=== PATIENT | female | born 1960 | race Caucasian/White ===

== ENCOUNTER → 2018-05-30 14:40 | Outpatient (CLI) | payer BC, SELFPAY ==
--- NOTE | 2018-05-30 14:51 | XR_ITS ---
XR DEXA axial skeleton HISTORY: ITS.REASON: asymptomatic menopausal state ORDERING PHYSICIAN: Salinas Rivera MD PATIENT AGE: 58 years COMPARISON: None FINDINGS: The BMD measured at the left femoral neck is 0.946 g/cm squared with a T score of -0.7. This is considered Normal according to the World Health Organization criteria. Fracture risk is Low. Treatment is advised. IMPRESSION: Normal bone density with low fracture risk. Recommend follow-up exam in May 2020
--- NOTE | 2018-05-30 14:51 | MM_ITS ---
MM Dig screening mamm BI w/CAD CAD Screening COMPARISON: Digital mammograms 05/28/2017 and additional views left breast 06/23/2017 INDICATION: There is a history of breast cancer patient maternal aunt. TECHNIQUE: Standard CC and MLO images were obtained. R2 CAD reviewed. FINDINGS: Prominent diffuse fibro glandular densities are seen throughout both breasts. Again noted is the asymmetric density upper outer quadrant left breast. This was noted to be a probable complex cyst on ultrasound performed May 2017. It appears stable and unchanged in size from the previous exam. Ultrasound performed 05/30/2018 show small hypoechoic nodular lesion to suggest small to characterize but likely small complex cyst. There is no suspicious lesion and there are no suspicious microcalcifications. IMPRESSION: Moderate diffuse breast density with stable benign-appearing asymmetric density left breast BI-RADS Category: 2 Benign Finding(s) RECOMMENDED FOLLOW-UP: 1YR - 1 YEAR FOLLOW-UP (A letter has been sent to the patient regarding results of the study.)
--- NOTE | 2018-05-30 14:51 | US_ITS ---
US breast LT complete INDICATION: Follow-up abnormal ultrasound ORDERING PHYSICIAN: Salinas Rivera MD PATIENT AGE: 58 years COMPARISON: 06/23/2017 TECHNIQUE: Standard left breast ultrasound with axilla FINDINGS: There is a small cyst at 3:00 at approximately 2 mm. There is a 3 mm hypoechoic area at 11:00 likely corresponding to the previously noted abnormality unchanged. This could be due to a complex cyst or an area of fibrocystic change. No suspicious nodules evident. IMPRESSION: Benign findings, no sonographic evidence of malignancy Recommend mammographic follow-up to compared to the 06/23/2017 exam BI-RADS Category: 2 Benign Finding(s) RECOMMENDED FOLLOW-UP: 1YR - 1 YEAR FOLLOW-UP (A letter has been sent to the patient regarding results of the study.)
== END ==
PROVIDERS: PCP Internal Medicine Adolescent Medicine; Visit Provider Obstetrics & Gynecology
DX: Z12.31 Encounter for screening mammogram for malignant neoplasm of breast (principal); R92.8 Other abnormal and inconclusive findings on diagnostic imaging of breast; Z78.0 Asymptomatic menopausal state
CPT/HCPCS: 76641; 77067; 77080

== ENCOUNTER → 2018-12-02 14:42 | Outpatient (CLI) | payer BC, SELFPAY ==
--- NOTE | 2018-12-02 14:44 | US_ITS ---
US breast LT complete INDICATION: 6 month follow-up ORDERING PHYSICIAN: Salinas Rivera MD PATIENT AGE: 58 years COMPARISON: 05/30/2018 TECHNIQUE: Left breast ultrasound with axilla FINDINGS: Once again there is a subtle area of decreased echogenicity at the 11:00 region measuring only 2 mm and could be due to a small complex cyst or an area of fibroglandular tissue. This is unchanged. Small nodes are present in the axilla. IMPRESSION: No evidence of malignancy. No change in the small hypoechoic 2 mm nodule at 11:00 Suggest follow-up mammogram in June 07, 2019 which would BE an annual follow-up for this patient BI-RADS Category: 2 Benign Finding(s) RECOMMENDED FOLLOW-UP: 6M - 6 MONTH FOLLOW-UP (A letter has been sent to the patient regarding results of the study.)
== END ==
PROVIDERS: PCP Internal Medicine Adolescent Medicine; Visit Provider Obstetrics & Gynecology
DX: R92.8 Other abnormal and inconclusive findings on diagnostic imaging of breast (principal)
CPT/HCPCS: 76641

== ENCOUNTER → 2019-06-02 09:53 | Outpatient (CLI) | payer BC, SELFPAY ==
--- NOTE | 2019-06-02 09:54 | MM_ITS ---
PROCEDURE: MM DIG SCREENING MAMM BI W/CAD CLINICAL INDICATION: screening There is a history of breast cancer patient's maternal aunt and cousin. COMPARISON: DMSB DIG MAMM-SCREEN SANTO W/CAD from 05/28/2017 DMDXUAVL DIG MAMM-DX UNI A/VWS-LT W/CAD from 06/23/2017 [facility] MM Dig screening mamm BI w/CAD from 05/30/2018 TECHNIQUE: Standard CC and MLO images were obtained. R2 CAD reviewed. FINDINGS: Scattered fibroglandular densities are seen throughout both breasts. There is a stable faint asymmetric density left breast highlighted by CAD but unchanged in appearance from studies dating back through May 2017. There is no new or suspicious lesion in either breast and no suspicious microcalcifications. IMPRESSION: Stable to moderate breast density with no suspicious lesions seen BI-RAD Category: 2 Benign Finding(s) FOLLOW-UP: 1YR 1 Year Follow-up (A letter has been sent to the patient regarding results of the study.) Dictated by: Dr. Edi Srinivasan MD 06/05/2019 10:[address] Edi Srinivasan MD in [place] 06/05/2019 10:03
== END ==
PROVIDERS: PCP Internal Medicine Adolescent Medicine; Visit Provider Obstetrics & Gynecology
DX: Z12.31 Encounter for screening mammogram for malignant neoplasm of breast (principal)
CPT/HCPCS: 77067

== ENCOUNTER → 2020-06-12 09:11 | Outpatient (CLI) | payer BC, SELFPAY ==
--- NOTE | 2020-06-12 09:11 | MM_ITS ---
PROCEDURE: MM DIG SCREENING MAMM BI W/CAD Digital Breast Tomosynthesis Included CLINICAL INDICATION: Routine Screening Mammogram There is a history of breast cancer patient's maternal aunt and cousin. The patient currently is on Premarin. COMPARISON: MG DMDXUAVL DIG MAMM-DX UNI A/VWS-LT W/CAD from 06/23/2017 MG [facility] MM Dig screening mamm BI w/CAD from 05/30/2018 MG MM DIG SCREENING MAMM BI W/CAD from 06/02/2019 TECHNIQUE: Standard CC and MLO images and 3D Tomosynthesis was obtained. R2 CAD reviewed. FINDINGS: Moderate scattered fibroglandular densities are seen throughout both breasts. Again noted slightly increased asymmetric glandular elements upper-outer right breast there is no new or suspicious lesion in either breast and no suspicious microcalcifications. IMPRESSION: Fibrofatty parenchyma with no suspicious lesions seen BI-RAD Category: 1 Negative FOLLOW-UP: 1YR 1 Year Follow-up (A letter has been sent to the patient regarding results of the study.) Dictated by: Dr. Edi Srinivasan MD 06/18/2020 08:23 Dr. Edi Srinivasan MD in [place] 06/18/2020 08:23
== END ==
PROVIDERS: PCP Internal Medicine Adolescent Medicine; Visit Provider Obstetrics & Gynecology
DX: Z12.31 Encounter for screening mammogram for malignant neoplasm of breast (principal)
CPT/HCPCS: 77063; 77067

== ENCOUNTER → 2021-06-13 10:44 | Outpatient (CLI) | payer BC, SELFPAY ==
--- NOTE | 2021-06-13 10:44 | MM_ITS ---
PROCEDURE INFORMATION: Exam: MG Bilateral Screening 3D Mammography Exam date and time: 06/13/2021 10:44 AM Age: 61 years old Clinical indication: Encounter for screening mammogram for malignant neoplasm of breast TECHNIQUE: Imaging protocol: Bilateral screening tomosynthesis and 2D mammography including computer-aided detection (CAD) when performed. COMPARISON: 1. MG MM DIG SCREENING MAMM BI W/CAD 06/12/2020 9:31 AM 2. MG MM DIG SCREENING MAMM BI W/CAD 06/02/2019 10:13 AM FINDINGS: MAMMOGRAPHY: Breast composition: The breast tissue is composed of scattered areas of fibroglandular density. Mass: None. Architectural distortion: None. Calcifications: No suspicious calcifications. Asymmetric density: None. Skin thickening: None. Axillary adenopathy: None. IMPRESSION: No mammographic evidence of malignancy. Annual screening is recommended unless otherwise clinically indicated. ASSESSMENT: BI-RADS Category 1: Negative
== END ==
PROVIDERS: PCP Internal Medicine Adolescent Medicine; Visit Provider Obstetrics & Gynecology
DX: Z12.31 Encounter for screening mammogram for malignant neoplasm of breast (principal)
CPT/HCPCS: 77063; 77067

== ENCOUNTER → 2022-06-15 12:39 | Outpatient (CLI) | payer OTHER, SELFPAY ==
--- NOTE | 2022-06-15 12:39 | MM_ITS ---
PROCEDURE INFORMATION: Exam: MG Bilateral Screening 3D Mammography Exam date and time: 06/15/2022 1:02 PM Age: 62 years old Clinical indication: Screening. A maternal aunt a a breast cancer. TECHNIQUE: Imaging protocol: Bilateral Screening tomosynthesis and 2D mammography including computer-aided detection (CAD) when performed. COMPARISON: 1. MG MM DIG SCREENING MAMM BI W/CAD 06/13/2021 10:40 AM 2. MG MM DIG SCREENING MAMM BI W/CAD 06/12/2020 9:31 AM 3. MG MM DIG SCREENING MAMM BI W/CAD 06/02/2019 10:13 AM 4. MG [facility] MM Dig screening mamm BI w/CAD 05/30/2018 4:12 PM FINDINGS: MAMMOGRAPHY: Breast composition: There are scattered areas of fibroglandular density. Mass: None. Architectural distortion: None. Calcifications: No suspicious calcifications. Asymmetric density: None. Skin thickening: None. Axillary adenopathy: None. IMPRESSION: No mammographic evidence of malignancy. Annual screening is recommended unless otherwise clinically indicated. ASSESSMENT: BI-RADS Category 1: Negative
== END ==
PROVIDERS: PCP Internal Medicine Adolescent Medicine; Visit Provider Obstetrics & Gynecology
DX: Z12.31 Encounter for screening mammogram for malignant neoplasm of breast (principal)
CPT/HCPCS: 77063; 77067

== ENCOUNTER → 2023-06-21 10:18 | Outpatient (CLI) | payer MEDICARE, SELFPAY ==
--- NOTE | 2023-06-21 10:22 | MM_ITS ---
PROCEDURE INFORMATION: Exam: MG Bilateral Screening 3D Mammography Exam date and time: 06/21/2023 10:11 AM Age: 63 years old Clinical indication: Screening examination TECHNIQUE: Imaging protocol: Bilateral Screening tomosynthesis and 2D mammography including computer-aided detection (CAD) when performed. COMPARISON: 1. MG MM DIG SCREENING MAMM BI W/CAD 06/15/2022 1:02 PM 2. MG MM DIG SCREENING MAMM BI W/CAD 06/13/2021 10:40 AM FINDINGS: MAMMOGRAPHY: Breast composition: There are scattered areas of fibroglandular density. Mass: None. Architectural distortion: None. Calcifications: No suspicious calcifications. Asymmetric density: None. Skin thickening: None. Axillary adenopathy: None. IMPRESSION: No mammographic evidence of malignancy. Annual screening is recommended unless otherwise clinically indicated. ASSESSMENT: BI-RADS Category 1: Negative
== END ==
LOC: RAD 10:18
PROVIDERS: PCP Internal Medicine Adolescent Medicine; Visit Provider Internal Medicine Adolescent Medicine
DX: Z12.31 Encounter for screening mammogram for malignant neoplasm of breast (principal)
CPT/HCPCS: 77063; 77067

== ENCOUNTER 2024-07-04 08:27 | Outpatient (CLI) | payer MEDICARE, SELFPAY ==
--- NOTE | 2024-07-04 08:30 | MM_ITS ---
PROCEDURE INFORMATION: Exam: MG Bilateral Screening 3D Mammography Exam date and time: 07/04/2024 8:20 AM Age: 64 years old Clinical indication: Screening examination TECHNIQUE: Imaging protocol: Bilateral Screening tomosynthesis and 2D mammography including computer-aided detection (CAD) when performed. COMPARISON: 1. MG MM DIG SCREENING MAMM BI W/CAD 06/21/2023 10:11 AM 2. MG MM DIG SCREENING MAMM BI W/CAD 06/15/2022 1:02 PM FINDINGS: MAMMOGRAPHY: Breast composition: There are scattered areas of fibroglandular density. Mass: No suspicious masses. Architectural distortion: None. Calcifications: No suspicious calcifications. Asymmetric density: None. Skin thickening: None. Axillary adenopathy: None. IMPRESSION: No mammographic evidence of malignancy. Annual screening is recommended unless otherwise clinically indicated. ASSESSMENT: BI-RADS Category 1: Negative.
== END 2024-07-04 23:59 | disposition home or self-care (01) ==
LOC: RAD 08:28
PROVIDERS: PCP Nurse Practitioner Family; Visit Provider Nurse Practitioner Family
DX: Z12.31 Encounter for screening mammogram for malignant neoplasm of breast (principal)
CPT/HCPCS: 77063; 77067

== ENCOUNTER 2024-11-06 10:15 | Outpatient (CLI) | payer MEDICARE, SELFPAY ==
--- NOTE | 2024-11-06 10:17 | US_ITS ---
FINAL REPORT TECHNIQUE: Sonographic images of the right upper quadrant were obtained. CLINICAL HISTORY: PAIN // chest and back pain x 10 months COMPARISON: None FINDINGS: PANCREAS: Unremarkable. LIVER: Homogeneous. Portal vein is patent. No focal hepatic lesion. No intrahepatic biliary ductal dilatation. GALLBLADDER: The gallbladder is distended. There is a gallstone in the neck of the gallbladder. The gallbladder wall is mildly thickened. There is no pericholecystic fluid. COMMON DUCT: 4 mm. Normal for age. RIGHT KIDNEY: The right kidney measures 11.7 cm. There is no hydronephrosis, mass, or stone. FREE FLUID: None. IMPRESSION: Gallstones and a distended gallbladder. Reviewed, Interpreted and Dictated by Kim Lundberg MD Transcribed by Shonna Sierra Authenticated and [facility]
== END 2024-11-06 23:59 | disposition home or self-care (01) ==
LOC: RAD 10:15
PROVIDERS: PCP Nurse Practitioner Family; Visit Provider Nurse Practitioner Family
DX: R10.11 Right upper quadrant pain (principal); R10.811 Right upper quadrant abdominal tenderness
CPT/HCPCS: 76705

== ENCOUNTER 2024-11-14 10:52 | Outpatient (CLI) | payer MEDICARE, SELFPAY ==
[2024-11-14 11:26] LABS: Basophils # 0.1 K/mm3 (0-0.2); Basophils % 0.3 % (0.1-2.0); Eosinophils % 0.2 % (0.1-12.0); Hematocrit 43.2 % (37.0-47.0); Hemoglobin 14.7 g/dL (12.2-16.2); Lymphocytes % 4.4 % (10-50); Mean Corpuscular Volume 88.2 fl (81-99); Mean Platelet Volume 10.7 fl (7.4-10.4); Monocytes # 1.3 K/mm3 (0.1-1.0); Monocytes % 6.1 % (1.7-9.3); Neutrophils # 19.2 K/mm3 (1.8-7.8); Neutrophils % 88.3 % (37.0-80.0); Nucleated Red Blood Cells # 0 10^3/uL; Nucleated Red Blood Cells % 0 %; Platelet Count 356 K/mm3 (142-424); Red Cell Distribution Width 12.8 % (11.5-17.5); Red Cell Distribution Width-SD 41.2 fL; White Blood Count 21.8 K/mm3 (4.8-10.8)
[2024-11-14 11:46] LABS: Chloride 98 mmol/L (98-107); Sodium 135 mmol/L (136-145)
[2024-11-14 11:49] LABS: Alanine Aminotransferase 28 U/L (12-78); Albumin/Globulin Ratio 2.2 (1.1-1.8); Alkaline Phosphatase 135 U/L (38-126); Amylase 57 U/L (30-110); Aspartate Amino Transferase 34 U/L (14-36); Bilirubin,Total 0.9 mg/dl (0.2-1.3); Blood Urea Nitrogen 18 mg/dl (7-17); Carbon Dioxide 26 mmol/L (22.0-30.0); Estimated Glomerular Filt Rate 72 ml/min (>60); GFR (African American) 87 ML/MIN (>60); Globulin 2.3 g/dL (1.3-3.2); Total Protein,Serum 7.3 g/dl (6.3-8.2)
[2024-11-14 11:50] LABS: Calcium 10.3 mg/dl (8.4-10.2); Glucose 130 mg/dl (74-100); Lipase 92 U/L (23-300)
== END 2024-11-14 23:59 | disposition home or self-care (01) ==
LOC: LAB 10:53
PROVIDERS: PCP Internal Medicine Adolescent Medicine; Visit Provider Surgery
DX: R10.11 Right upper quadrant pain (principal)
CPT/HCPCS: 36415; 80053; 82150; 83690; 85025

== ENCOUNTER 2024-11-29 07:39 | Outpatient (CLI) | payer MEDICARE, SELFPAY ==
--- OUTSIDE RECORDS SUMMARY | 2024-11-29 07:41 | XMS_ITS | Continuity of Care Document ---
Author Organization [facility] [place] Address [address] [place] [address] Care Team Providers Care Alarm Mechanism Adjuster Name Role Phone KEIKO GOMES Referring Provider JESSICA HANLEY Electronics Technician Apprentice Assessment No assessment recorded. Plan of Treatment Reminders Order Date Submit Date Provider Last Modified By Organization Details Last Modified Time Details Appointments FOLLOW UP [facility] 2024 01:00P M JESSICA HANLEY PA-C Not available Not available Not available Lab None recorded. Referral None recorded. Procedures None recorded. Surgeries None recorded. Imaging None recorded. Medication Orders ketoconaz ole 2 % topical cream 2024 025 [facility] [address] [place], [address], 11/07/2024 12:23:34 Patient TargetsNo targets recorded. Patient InstructionsNo instructions recorded. Reason for Referral None Reported. 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 Procedures Surgical History Date Name Laterality Status Provider Name and Address Organization Details Recorded Time 5 DAK - Lesion Excision, [place]; trunk,arms,legs completed Kely Serrano [facility] 09/06/2024 13:21:41 5 DAK - Lesion Excision, [place]; trunk,arms,legs completed Kely Negrob [facility] 08/23/2024 13:25:59 DAK - Biopsy, Tangential completed Gwen Alverto [facility] 05/15/2024 11:04:52 section completed Gavin Dumont [facility] 05/15/2024 10:37:34 Imaging Results None recorded. Procedure Notes None recorded. Medical Equipment None Reported. Allergies No known drug allergies Medications Name Sig Start Date Stop Date Status Note LastModified by Organization Details LastModified Time gentamicin 0.1 % topical cream APPLY A SMALL AMOUNT OF CREAM TOPICALLY TO AFFECTED AREA TWICE DAILY FOR 2 WEEKS, THEN SWITCH TO VASELINE UNTIL HEALED active Not Available Not Available No t Available ketoconazole 2 % topical cream APPLY CREAM TOPICALLY TO INFRAMAMMAR Y FOLDS TWICE DAILY UNTIL CLEAR. REPEAT NEEDED active Not Available Not Available No t Available Premarin 0.625 mg/gram vaginal cream active Not Available Not Available Not Available Prilosec active Not Available Not Avai lable Not Available multivitamin active Not Available Not Available Not Available Vitals None Recorded Social History Question Answer Notes LastModified by Organizat ion Details LastModified Time Tobacco Smoking Status Never Smoker Gavinpasha [facility] 05/15/2024 10:37:05 What Is Your Level Of Caffeine Consumption? Occasional [email or web address] Information not available 05/15/2024 Sunscreen Use? Yes [email or web address] Informatio n not available 05/15/2024 Tanning Bed Use Yes [email or web address] Informati on not available 05/15/2024 Are You Or Trying To Become ? No [email or web address] Information not available 05/15/2024 Are You On Control? No [email or web address] Information not available 05/15/2024 Are You ? No [email or web address] Information not available 05/15/2024 What Was The Date Of Your Most Recent Tobacco Screening? 09/06/2024 [email or web address] Information not available 09/06/2024 Has Tobacco Cessation Counseling Been Provided? No Information not available 05/15/2024 Sex: Unknown Functional Status Question Answer Note LastModified by Organizat ion Details LastModified Time Do you use any illicit or recreational drugs? No [email or web address] Information not available 05/15/2024 Do you or have you ever used any other forms of tobacco or nicotine? No Information not available 05/15/2024 What is your level of alcohol consumption? Occasional [email or web address] Information not available 05/15/2024 Mental Status None recorded. Family History Relationship Description Onset Age of this Age Resolved Age Notes LastModified by Organization Details LastModified Time Father No current problems or disability [email or web address] Not available 04/19 10:36:34 Mother No current problems or disability [email or web address] Not available 04/19 10:36:34 Medical History Condition Response Skin Cancer Y Autoimmune disease N Basal Cell Carcinoma Y Gynecological HistoryNo gynecological history recorded. Obstetrics History GPAL:G 0 P 0 0 0 0 Past Encounters Encounter ID Performer Location Encounter Start Date Encounter Closed Date Diagnosis/Indication Diagnosis SNOMED-CT Code Diagnosis ICD10 Code Diagnosis Note [id number] JESSICA HANLEY PA-C [address] [address] 11/07/2024 10:14:21 11/07/2024 10:45:03 History of malignant neoplasm of skin 359610431 Z85.828 -04/2024- No evidence of recurrence today- Call with any worrisome lesions or if treated lesions return- Return at regular intervals for skin exam as recommende d Multiple b enign melanocytic nevi 633841558 D22.5 - Benign moles seen on exam today - SPF 30 or higher broad-spec trum sunscreen recommende d with re-applica tion every 2 hours - Discussed sun protection measures, including wide-brimm ed hat, sun-protec tive clothing, and avoidance of sun during peak hours of 10am-4pm - Avoid tanning beds as these can increase the chances of all 3 types of skin cancer - Instructed to monitor for changes and to call us for appointmen t with any changing or worrisome lesions Seborrheic keratosis 394 353432 L82.1 - Benign overgrowth s of skin - Hereditary Senile angioma 7466958 I 78.1 - Benign blood vessel growths - Hereditary Solar lentigo [id number] L 81.4 - Benign brown spots - Sun-induce d Intertrigo 64867772 L30. 4 Heat, moisture, friction and, often, yeast cause intertrigo . Barrier ointments such as petrolatum and Desitin (zinc oxide) paste are helpful to prevent symptoms. Will send Ketoconazo le apply BID to inframamma ry folds until clear, repeat PRN Health Concerns Section Related Observation LastModified by Organization Detai ls LastModified Time None Recorded Concern Status LastModified by Organization Details LastModified Time None Recorded Payers Encounter Date Sequence Insurance Name Policy Number Policy Drummond Covered Member ID Drummond Member ID Guarantor Name 11/07/2024 1 [employer] (MEDICARE REPLACEMENT/A DVANTAGE - PPO) Alejandra Batres [id number] Alejandra Batres Notes Date Note Type Note Provider Name and Address Organization Details Recorded Time 11/07/2024 text/html Patient requests a full body skin exam. Location: Full bodyDuration: 6 monthsHistory: BCC (R lower back @T11, R lateral chest, R helix, L forehead - 04/2024)Areas of concern: no concerns JOE BRADLEYC [address] [place], [address], [facility] 11/07/2024 12:23:30 OBGyn Episode No OBEpisode recorded.
--- OUTSIDE RECORDS SUMMARY | 2024-11-29 07:41 | XMS_ITS | Data Portability ---
Author Organization [facility] Address [address] [place] [address] Care Team Providers Care Pre Billing Specialist Name Role Phone MIREYA KEIKO Referring Provider [phone] JESSICA HANLEY Modeling Analyst Assessment Encounter Date Assessment Date Assessment LastModified by Organization Details LastModified Time 08/23/2024 08/23/2024 Right Lower Back @ T11 - BCC, nodular [email or web address] Not available 08/22/2024 08:47:27 Plan of Treatment Reminders Order Date Submit Date Provider Last Modified By Organization Details Last Modified Time Details Appointments FOLLOW UP DAK 2024 01:00P M JESSICA HANLEY PA-C Not available Not available Not available Lab surgical pathology study 2024 025 [facility], [address] [place] [address], [phone], 09/11/2024 11:07:53 surgical pathology study 2024 025 [facility], [address] [place] [address], [phone], 08/24/2024 14:51:00 Referral None recorded. Procedures None recorded. Surgeries None recorded. Imaging None recorded. Medication Orders ketoconaz ole 2 % topical cream 2024 025 [facility] [address] [place], [address], 11/07/2024 12:23:34 Patient TargetsNo targets recorded. Patient Instructions Encounter Date Encounter Id Patient Instructions Last Modified By Organization Details Last Modified Time 08/23/2024 [id number] Patient reassure d about appearance of wound. Patient instructed to begin tissue massage and may begin using silicone scar strips. Patient invited to call for any future questions/concern sRossy [email or web address] Not available 08/23/2024 20:33:11 Reason for Referral None Reported. Results Created Date Observation Date Name Description Value Unit Range Abnormal Flag Note LastModifiedBy Organization Detail LastModifiedTime 08/23/19 25 08/23/2024 [facility] surgical SEE BELOW abnormal [place] topat holog y Repor t NAME: ALEJANDRA RUST PATH: [id number] PROCE DURE DATE: 08/23 SIGNO UT DATE: 08/24 Copy to: Diagn osis: Right lower back @ T11- REPAR ATIVE REACT ION FOLLO WING PREVI OUS PROCE DURE Comme nt: Subcu taneo us fat is ident ified . SOURC E OF SPECI MEN: SKIN, R LOWER BACK AT T11 CLINI [facility] INFOR MATIO N: BX PROVE N: BCC, NODUL AR. Gross Descr iptio n: Recei tomeka times one mcdonald ellip tical -shap ed excis ion which measu red 24 x 14 x 8 mm. Speci men is inked with blue dye for micheline ns and seria lly secti oned (x7). All is submi tted in three casse ttes. Micro scopi c Descr iptio n: Focal granu latio n tissu e jenkins the site of the previ ous proce dure. These is no evide nce of resid ual neopl asm. MELIA WELCH MD Kathy d Out Date: 08/24 13:38 1 Not Available [facility] [address], [place], [address], 08/24/2024 14:51:00 09/06/19 25 09/06/2024 [facility] surgical SEE BELOW abnormal [place] topat holog y Repor t NAME: ALEJANDRA RUST PATH: [id number] PROCE DURE DATE: 09/06 SIGNO UT DATE: 09/11 Copy to: Diagn osis: Right Later al Chest - BASAL CELL CARCI NOMA Comme nt: The micheline ns are free of tumor . Subcu taneo us fat is ident ified . SOURC E OF SPECI MEN: SKIN, R LAT CHEST CLINI [facility] INFOR MATIO N: BX PROVE N: BCC. Gross Descr iptio n: Recei tomeka times one mcdonald ellip tical -shap ed excis ion which measu red 43 x 23 x 7 mm. Speci men is inked with blue dye for micheline ns and seria lly secti oned (x13) . All is submi tted in six casse ttes. Micro scopi c Descr iptio n: Nests and aggre faulkner of immat ure basal oid epith elial cells with perip heral palis ading are prese nt in the dermi s. MELIA WELCH MD Kathy d Out Date: 09/11 11:07 1 Not Available [facility] [place], [address], 09/11/2024 11:07:53 Result Notes None recorded. Problems Name Problem SNOMED Code Status Onset Date Resolution Date Notes Provider Name and Address Organization Details Recorded Time Neoplasm of uncertain behavior of skin 68243518 Active 024 Gwen Del Toro [facility] 4 10:58:04 Intertrigo 09422396 Active 025 Gwen Del Toro [facility] 5 10:39:31 Problem Notes None recorded. Procedures Surgical History Date Name Laterality Status Provider Name and Address Organization Details Recorded Time 5 DAK - Lesion Excision, [place]; trunk,arms,legs completed [facility] 09/06/2024 13:21:41 5 DAK - Lesion Excision, [place]; trunk,arms,legs completed [facility] 08/23/2024 13:25:59 4 DAK - Biopsy, Tangential completed Gwen Del Toro [facility] 05/15/2024 11:04:52 section completed Gavin Dumont [facility] 05/15/2024 10:37:34 Imaging Results None recorded. Procedure [...] LastModified Time Tobacco Smoking Status Never Smoker Gavin Dumont [facility] 05/15/2024 10:37:05 What Is Your Level Of Caffeine Consumption? Occasional [email or web address] Information not available 05/15/2024 Sunscreen Use? Yes [email or web address] Informatio n not available 05/15/2024 Tanning Bed Use Yes [email or web address] Informati on not available 05/15/2024 Are You Or Trying To Become ? No [email or web address] Information not available 05/15/2024 Are You On Control? No [email or web address] Information not available 05/15/2024 Are You ? No [email or web address] Information not available 05/15/2024 What Was The Date Of Your Most Recent Tobacco Screening? 09/06/2024 Information not available 09/06/2024 Has Tobacco Cessation Counseling Been Provided? No [email or web address] Information not available 05/15/2024 Sex: Unknown Functional Status Question Answer Note LastModified by Organizat ion Details LastModified Time Do you use any illicit or recreational drugs? No [email or web address] Information not available 05/15/2024 Do you or have you ever used any other forms of tobacco or nicotine? No [email or web address] Information not available 05/15/2024 What is your level of alcohol consumption? Occasional [email or web address] Information not available 05/15/2024 Mental Status None recorded. Family History Relationship Description Onset Age of this Age Resolved Age Notes LastModified by Organization Details LastModified Time Father No current problems or disability [email or web address] Not available 04/19 10:36:34 Mother No current problems or disability [email or web address] Not available 04/19 10:36:34 Medical History Condition Response Skin Cancer Y Autoimmune disease N Basal Cell Carcinoma Y Gynecological HistoryNo gynecological history recorded. Obstetrics History GPAL:G 0 P 0 0 0 0 Past Encounters Encounter ID Performer Location Encounter Start Date Encounter Closed Date Diagnosis/Indication Diagnosis SNOMED-CT Code Diagnosis ICD10 Code Diagnosis Note [id number] JESSICA HANLEY PA-C [place] [address] [place] [address] 05/15/2024 10:07:48 05/15/2024 11:29:29 History of malignant neoplasm of skin 102656055 Z85.828 - 2019- No evidence of recurrence today- Call with any worrisome lesions or if treated lesions return- Return at regular intervals for skin exam as recommende d Multiple b enign melanocytic nevi 305625439 D22.5 - Benign moles seen on exam [...] changing or worrisome lesions Seborrheic keratosis 394 343677 L82.1 - Benign overgrowth s of skin - 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 R lower back @ T11 - 6mm pink papule with vessels and brown globules r/o BCC2. R lateral chest - 3.2cm pink scaly patch w/ diffuse vessels r/o SCC vs AD vs psoriasis3 . L forehead - 5mm pink papule with peripheral vessels r/o BCC4. R helix - 5mm bright red papule with vessels r/o SCC vs BCC vs scar [id number] BETTY GAYLE BARNHART, DO [address] [address] 08/09/2024 08:40:00 08/15/2024 09:09:41 [id number] BETTY BARNHART, DO [place] [address] 08/16/2024 10:20:35 08/18/2024 12:08:24 [id number] ARRON PUENTES MD [address] [address] 08/23/2024 12:28:11 08/23/2024 13:41:32 Basal cell carcinoma of truncal skin 264443783 C44.519 Discussed excision. SE (including but not limited to): bleeding, infection, scarring, nerve damage and re-excisio n.Will have sutures and will need to limit activity. Bx proven BCC, nodular on the Right lower back @ X76Nxfj #: [id number] 0Pathology discussed with patientSit e confirmed with photo [id number] BETTY FISHERSKIP BARNHART, [address] [address] 08/23/2024 13:41:46 08/24/2024 05:36:34 History of malignant neoplasm of skin 830141655 Z85.828 No evidence of recurrence . Discussed risk of recurrence and new skin cancers, so regular self exam and profession al skin checks are recommende d. Sun protection with broad spectrum SPF 30 sunscreen and broad-brim med hat is recommende d. Sun protection with SPF 30 broad spectrum sunscreen and protective gear discussed. Postoperative visit 1836 79519 Z09 Scar 678779607 L90.5 [id number] BETTY GAYLE BARNHART, [address] [address] 09/06/2024 11:23:06 09/07/2024 04:39:44 History of malignant neoplasm of skin 000454734 Z85.828 No evidence of recurrence . Discussed risk of recurrence and new skin cancers, so regular self exam and profession al skin checks are recommende d. Sun protection with broad spectrum SPF 30 sunscreen and broad-brim med hat is recommende d. Sun protection with SPF 30 broad spectrum sunscreen and protective gear discussed. Postoperative visit 0246 40778 Z09 Pt can discontinu e wound care after one week and follow up as needed. Scar 339023726 L90.5 [id number] ARRON PUENTES MD [facility] [address] [place] [address] 09/06/2024 12:33:07 09/06/2024 13:22:24 Basal cell carcinoma of truncal skin 641116574 C44.519 Discussed excision. SE (including but not limited to): bleeding, infection, scarring, nerve damage and re-excisio n.Will have sutures and will need to limit activity. Bx proven BCC on the Right lateral chestPath #: [id number] 0Pathology discussed with patientSit e confirmed with photo [id number] JESSICA HANLEY PA-C [address] [address] 11/07/2024 10:14:21 11/07/2024 10:45:03 History of malignant neoplasm of skin 610697334 Z85.828 -04/2024- No evidence of recurrence today- Call with any worrisome lesions or if treated lesions return- Return at regular intervals for skin exam as recommende d Multiple b enign melanocytic nevi 145855194 D22.5 - Benign moles seen on exam [...] changing or worrisome lesions Seborrheic keratosis 394 206391 L82.1 - Benign overgrowth s of skin - Hereditary Senile angioma 0708118 I 78.1 - Benign blood vessel growths - Hereditary Solar lentigo 58220007 L 81.4 - Benign brown spots - Sun-induce d Intertrigo 59076262 L30. 4 Heat, moisture, friction and, often, [...] by Organization Details LastModified Time None Recorded Advance Directives Directive None Recorded Payers Insurance Date Sequence Insurance Name Policy Number Policy Drummond Covered Member ID Drummond Member ID Guarantor Name 11/10/2024 1 [employer] (MEDICARE REPLACEMENT/A DVANTAGE - PPO) Alejandra Guthrie Medardo [id number] Alejandra K Medardo 02/29/2024 1 *SELF PAY* [place] Notes Date Note Type Note Provider Name and Address Organization Details Recorded Time 08/23/2024 text/html Patient presents for a 2 week intermediate repair follow up for the left forehead from Mohs performed on 08/09/2024, treating a basal cell carcinoma. She states the area is puffy in appearance. BETTY MEYER DO [address] [place], [address], [facility] 08/23/2024 20:33:22 08/23/2024 text/html Patient is here for an excision of a{{ BCC#}}on the{{ R. Lower Back @ T1#}} - Pacemaker? {{Yes No*}}- Defibrillator? {{Yes No*}}- Artificial Heart Valves or Joints? {{Yes No*}} When? {{}}- Is patient currently on antibiotics? {{Yes No*}}- History of bleeding, infection, or complication with other surgeries? {{Yes No*}}- Has patient taken any steroids or other immunosuppressant medications in the past 2 weeks? {{Yes No*}}- Currently on blood thinners? {{Yes No*}} Which? {{}} ARRON PUENTES MD [address] [place], [address], [facility] 08/23/2024 19:47:02 09/06/2024 text/html Patient presents for a 1 month granulation follow up for the right helix from Mohs performed on 08/16/2024, treating a basal cell carcinoma. BETTY MEYER DO [address] [place] [address], [address], [facility] 09/06/2024 16:59:27 09/06/2024 text/html Patient is here for an excision of a{{ BCC#}}on the{{ Right lateral chest#}} - Pacemaker? {{Yes No*}}- Defibrillator? {{Yes No*}}- Artificial Heart Valves or Joints? {{Yes No*}} When? {{}}- Is patient currently on antibiotics? {{Yes No*}}- History of bleeding, infection, or complication with other surgeries? {{Yes No*}}- Has patient taken any steroids or other immunosuppressant medications in the past 2 weeks? {{Yes No*}}- Currently on blood thinners? {{Yes No*}} Which? {{}} ARRON PUENTES MD [address] [place] [address], [address], [facility] 09/06/2024 13:38:26 11/07/2024 text/html Patient requests a full body skin exam. Location: Full bodyDuration: 6 monthsHistory: BCC (R lower back @T11, R lateral chest, R helix, L forehead - 04/2024)Areas of concern: no concerns JESSICA HANLEY PA-C [address] [place] [address], [address], [facility] 11/07/2024 12:23:30 OBGyn Episode No OBEpisode recorded.
--- NOTE | 2024-11-29 08:00 | CT_ITS ---
FINAL REPORT TECHNIQUE: After the administration of oral and intravenous contrast, axial images were obtained through the abdomen and pelvis by computed tomography. The study was performed with techniques to keep radiation dose as low as reasonably achievable, (ALARA). Individual dose reduction techniques using automated exposure control or adjustment of mA and/or kV according to the patient's size were employed. CLINICAL HISTORY: Right upper quad pain COMPARISON: None FINDINGS: Abdomen: Atelectasis is present in the lung bases bilaterally, greater on the left than on the right. Multiple gallstones are present in the gallbladder, including a 1.5 cm gallstone in the neck of the gallbladder. The gallbladder is distended, and gallbladder wall thickening is present, worrisome for acute cholecystitis. There is low density in the right lobe of the liver, slightly ill-defined, measuring up to 2.7 cm in diameter that was not present on the prior ultrasound of 11/06/2024. This is worrisome for an abscess. There are subtle densities in the distal common bile duct, best seen on image #37 of series 2, that may represent small gallstones. The spleen, pancreas, adrenals and kidneys appear unremarkable. The aorta is normal in caliber. There is no free fluid or adenopathy. Pelvis: The appendix is not identified. The urinary bladder is anteverted. There is no free fluid or adenopathy. The bladder is contracted. IMPRESSION: Multiple gallstones are present in the gallbladder including a 1.5 cm stone in the neck of the gallbladder. The gallbladder is distended, with gallbladder wall thickening, worrisome for acute cholecystitis. There is a new ill-defined low-density in the right lobe of the liver, measuring up to 2.7 cm in size, that may represent abscesses. Reviewed, Interpreted and Dictated by Ham Ford MD Transcribed by Sameera Wong Authenticated and [facility]
[2024-11-29] MEDS: SODIUM CHLORIDE 0.9% 10ML SYR (RAD ONLY) 10 ML IV (08:16)
[2024-11-29] MEDS: IOPAMIDOL-370 (76%);100ML BOTTLE 75 ML IV (08:16)
== END 2024-11-29 23:59 | disposition home or self-care (01) ==
LOC: RAD 07:40
PROVIDERS: PCP Internal Medicine Adolescent Medicine; Visit Provider Surgery
DX: K80.20 Calculus of gallbladder without cholecystitis without obstruction (principal); R93.2 Abnormal findings on diagnostic imaging of liver and biliary tract
CPT/HCPCS: 74177; Q9967

== ENCOUNTER 2024-11-30 10:51 | Outpatient (CLI) | payer MEDICARE, SELFPAY ==
[2024-11-30 11:27] VITALS: BMI 27.4
--- NOTE | 2024-11-30 11:41 | ECG_ITS ---
APPROVED REPORT Exam: Resting ECG HR:67 bpm ECG Measurements Heart Rate 67 AXES VA 166 P 74 QRSd 85 QRS 64 QT 369 T 64 QTc 385 Conclusion SINUS RHYTHM INDETERMINATE AXIS LOW QRS VOLTAGE IN PRECORDIAL LEADS [QRS DEFLECTION < 1.0 mV IN CHEST LEADS] BORDERLINE ECG UNCONFIRMED REPORT Electronically signed by : Mundo Dominguez MD 12/05/2024 08:09:29
[2024-11-30 11:45] LABS: Basophils # 0.1 K/mm3 (0-0.2); Basophils % 0.7 % (0.1-2.0); Eosinophils # 0.1 Kmm3 (0.0-0.4); Eosinophils % 0.9 % (0.1-12.0); Hematocrit 42.3 % (37.0-47.0); Hemoglobin 14.1 g/dL (12.2-16.2); Immature Granulocytes # 0.01 10^3uL; Immature Granulocytes % 0.1 %; Lymphocytes # 2.3 K/mm3 (0.7-4.5); Lymphocytes % 32.9 % (10-50); Mean Corpuscular HGB Conc 33.3 g/dL (31.8-35.4); Mean Corpuscular Hemoglobin 30.3 pg (27.0-31.2); Monocytes # 0.5 K/mm3 (0.1-1.0); Monocytes % 7.8 % (1.7-9.3); Neutrophils % 57.6 % (37.0-80.0); Nucleated Red Blood Cells # 0 10^3/uL; Nucleated Red Blood Cells % 0 %; Platelet Count 342 K/mm3 (142-424); Red Blood Count 4.65 M/mm3 (4.20-5.40); Red Cell Distribution Width 13.4 % (11.5-17.5); Red Cell Distribution Width-SD 45.1 fL; White Blood Count 6.9 K/mm3 (4.8-10.8)
[2024-11-30 11:57] LABS: Alanine Aminotransferase 21 U/L (12-78); Albumin Level 4.8 g/dl (3.5-5.0); Albumin/Globulin Ratio 1.8 (1.1-1.8); Alkaline Phosphatase 127 U/L (38-126); Anion Gap 12.9 mEq/L (5-15); Aspartate Amino Transferase 31 U/L (14-36); Bilirubin,Total 0.6 mg/dl (0.2-1.3); Blood Urea Nitrogen 18 mg/dl (7-17); Calcium 9.8 mg/dl (8.4-10.2); Carbon Dioxide 26 mmol/L (22.0-30.0); Chloride 103 mmol/L (98-107); Creatinine Clearance Estimated 65 mL/min (50-200); Estimated Glomerular Filt Rate 72 ml/min (>60); GFR (African American) 87 ML/MIN (>60); Globulin 2.7 g/dL (1.3-3.2); Glucose 100 mg/dl (74-100); Potassium 3.9 mmoL/L (3.5-5.1); Sodium 138 mmol/L (136-145); Total Protein,Serum 7.5 g/dl (6.3-8.2)
== END 2024-11-30 23:59 | disposition home or self-care (01) ==
LOC: PREOP 10:52
PROVIDERS: PCP Internal Medicine Adolescent Medicine; Visit Provider Surgery
DX: Z01.810 Encounter for preprocedural cardiovascular examination (principal); K80.20 Calculus of gallbladder without cholecystitis without obstruction; R94.31 Abnormal electrocardiogram [ECG] [EKG]
CPT/HCPCS: 80053; 85025; 93005

== ENCOUNTER 2024-12-01 07:01 | Day surgery (SDC) | payer MEDICARE, SELFPAY ==
[2024-11-30 11:30] VITALS: BMI 27.4
[2024-12-01] VITALS (10 sets, daily range): BP systolic 118–139; BP diastolic 58–90; PULSE 78–89; RESP 16–18; TEMP 36.1–38; O2SAT 95–99
[2024-12-01] MEDS: LACTATED RINGERS 1000ML 1,000 ML 125 ML IV (08:30)
--- NOTE | 2024-12-01 09:54 | EXP.ANES.CKL ---
[facility] Disclaimer: The information contained in this section may have been updated after the patient was seen, as this information can be updated by other users. Medical History History of cardiac murmur Surgical History History of D&C History of excision of lesion Hx of section Family History Other No significant family history Social History Smoking Status: Never smoker alcohol intake: never substance use type: denies use current occupational status: retired Travel in the last 8 weeks?: None Have you lived/traveled outside US in past 30 days?: No Contact w/someone who lives/traveled outside US past 30 days?: No Exposure to someone with infectious disease in past 14 days?: No Do you have a fever (greater than 100.4 F or 38 C)?: No Have you tested positive for COVID-19?: No Exposed to someone with COVID-19 in past 14 days?: No Do you have a sore throat?: No Do you have a cough?: No Do you have any weakness?: No Do you have any diarrhea?: No Are you experiencing any unusual bleeding?: No Do you have any muscle aches/pain?: No Do you have any abdominal pain?: No Are you experiencing loss of taste or smell?: No [facility] Anesthesia Checklist Patient Identification Patient Identification: Arm Band Structural Data Admitted From: Home Planned Operative Procedure/s: Laparoscopic Cholecystectomy Consent for Planned Operative Procedure(s) Verified: Yes Verified Documents: Surgical Consent and History and Physical NPO Status Verified Time NPO: 00:00 Additional verifications Anesthesia Reactions: No Hx Blood Transfusions: No Blood Transfusion Reaction: No Airway Assessment Mallampati Score:: Class II C-Spine Mobility Assessed: Yes TMJ Mobility Assessed: Yes Dentition: Good Dentition Neurological Assessment Level of Consciousness: Awake, Alert and Appropriate Anesthesia Plan Anesthesia Risk discussed: Yes Anesthesia Plan: Verified ASA Class: II Anesthesia Type: General
[2024-12-01] MEDS: LIDOCAINE 1% 20ML MDV 20 ML (13:18)
[2024-12-01] MEDS: ROPIVACAINE 0.5% 30ML VIAL 150 MG (13:18)
--- NOTE | 2024-12-01 14:04 | EXP.ANES.I ---
[facility] Anesthesia Record Part I Anesthesia Record I Intake, IV Amount: 1,300 Hydration: Adequate Estimated blood loss (mL): 10 Urine output (mL): 0 Blood Pressure: 122/67 SaO2: 96 Pulse Rate: 81 Airway Patency: Patent Respiratory Rate: 18 Temperature: 97 F Patient is:: Awake, Stable and Ventilator Stable to PACU at:: 14:09
[2024-12-01] MEDS: KETOROLAC 30MG/ML VIAL 30 MG IV (14:13)
[2024-12-01] MEDS: MORPHINE 2MG/ML SYRINGE 2 MG IV (14:13)
--- NOTE | 2024-12-01 14:33 | P.OP_ITS ---
Date of procedure: 12/01/24 Pre-op Diagnosis:: Cholecystitis Post-op Diagnosis:: Apparent advanced gallbladder carcinoma Procedure performed:: Diagnostic laparoscopy Surgeon:: Joel Alex MD Anesthesia: NIRANJAN Estimated blood loss (mL): 10 Clinical Note:: Patient presents for cholecystectomy. She is a 64-year-old female from [place] referred by Kaela Brown for gallbladder and seen in the office as initial consultation 2 weeks ago. She describes symptoms for about 3 months. She state s that this began as symptoms consistent with severe heartburn with epigastric pain with radiation into the chest. It was described as sharp and severe pain. She has had radiation of the pain around to her upper back. She has had various positions of the pain in her abdomen but mostly in the upper abdomen and right upper quadrant but also in the periumbilical location somewhat. She does have o ccasional exacerbations with eating. However pain occurs somewhat sporadically and often spontaneously in the middle of the night and is most commonly in the back. Gallbladder ultrasound done on 11/06/24 revealed gallstones with distended gallbladder with mild wall thickening and 4 mm normal common bile duct. After initial consultation it was noted that the patient's symptoms were somewhat atypical and she had tenderness in various locations of her abdomen. Therefore arrangements were made for CT scan of the abdomen and pelvis prior to consideration of cholecystectomy. I also checked full spectrum of laboratory studies. Interestingly her CBC count on 11/14/24 revealed white blood cell count of 22,000. LFTs normal. Pancreatic enzymes normal. She underwent CT scan of the abdomen and pelvis on 11/29/2024 which reveals multiple gallstones including 1.5 cm stone in the neck of the gallbladder with a distended gallbladder. There is also ill-defined low-density in the right lobe of the liver measuring up to 2.7 cm in size that may represent abscesses. Patient states that she has had ongoing pain occurring about every 4 hours. I had her undergo repeat laboratory studies which now shows normalization of the white blood cell count. I reviewed her CT scan. It appears as though she likely does have evidence of cholecystitis. The noted finding in the lobe of the liver appears to be posterior and adjacent to the gallbladder. This could be reactive fluid or abscess. I also explained to her the potential that she could have unusual finding such as gallbladder carcinoma although this seems unlikely given previous findings on recent ultrasound. I feel that expeditious cholecystectomy would be warranted. Patient is very agreeable to this. Plan will be for laparoscopic possibly open cholecystectomy. I did explain to her that she may carry a higher likelihood of open cholecystectomy. I also explained to her the potential need for drain placement. Arrangements are being made for cholecystectomy to be done the next day on 12/01/2024. . Operative findings:: Patient had evidence of a markedly distended very thickened gallbladder. After aspiration of the large gallbladder there was noted to be findings consistent with obvious carcinoma involving the adjacent liver. . Operative note:: Consent was obtained and patient was taken to the operating room. She was positioned in supine position. General anesthesia was induced via endotracheal tube. Abdomen was prepped and draped in the standard surgical fashion. As she had a low midline scar and a tiny umbilical hernia plan was made for entry into the abdomen using Gann blunt technique. Subumbilical incision was made. Dissection was carried down to umbilical hernia sac. This was dissected free from the umbilical subdermis and opened. Peritoneal cavity was entered. Extraneous peritoneum of the hernia sac was excised to normal fascia. Overall size of the umbilical defect measured about 10 to 12 mm. 0 Vicryl fascial stay sutures were placed. Gann blunt trocar was inserted into the peritoneal ca vity and CO2 pneumoperitoneum was achieved to 15 mmHg. She was positioned in reverse Trendelenburg with left side down. A couple of 5 mm trocars were inserted in the right upper abdomen and 10 mm trocar was inserted in the epigastrium. Initial laparoscopic surveillance revealed omentum overlying the liver and gallbladder. This was swept inferiorly. She was then noted to have a massively distended firm leathery gallbladder obscuring the liver. This was felt to be potentially hydropic gallbladder and laparoscopic needle aspirator was used to aspirate the contents. At this time the noted lesions on CT scan in the adjacent liver or able to be visualized. This appeared to be consistent with obvious carcinoma. There were no peritoneal metastases. This was located regionally within the liver. The gallbladder was elevated and there were few omental adhesions to the adjacent liver. These were taken down using Cassius ultrasonic harmonic braulio to be able to visualize the gianfranco hepatis. At the gianfranco hepatis and in the region of the common hepatic duct there was significant firmness and thickening potentially consistent with tumor involvement involving gianfranco hepatis and common hepatic duct. At this time plan was made to avoid any additional manipulation or dissection of the gallbladder. It was felt that the patient may require transfer to high-level tertiary facility for definitive management. Therefore the tiny defect in the fundus of the gallbladder was closed with a couple of PDS Endoloops. Once there was assurance of good hemostasis and integrity of the gallbladder without biliary leakage trocars were removed and CO2 pneumoperitoneum was evacuated. Fascia at the umbilicus was closed with several interrupted 0 Vicryl sutures. Local anesthetic was infiltrated. Skin incisions were closed with 4-0 Monocryl in a subcuticular fashion. Dressings were applied. Please note that while the patient was still in the operating room discussion was held with [facility] followed by [facility] surgical oncology services who both felt that the patient could be managed as an outpatient without direct transfer. Therefore plan will be for outpatient management with early expeditious follow-up. . Condition: stable Disposition: PACU Complications:: None immediately apparent
--- NOTE | 2024-12-04 13:22 | P.PNANES_ITS ---
[facility] Anesthesia Record Part II Anesthesia Record Part II Discharge Time: 15:05 Destination: Surgical Day Care (OP Surgery) PACU nurse assessment reviewed?: Yes Patient Condition:: Good Anesthesia Complications:: None Swallowing reflex intact?: Yes Airway Patency: Patent Cyanosis?: No Blood Pressure: 128/70 SaO2: 96 Respiratory Rate: 16 Pulse Rate: 80 Temperature: 97.5 F Mental Status: Alert & Oriented Pain level:: 0 Nausea and/or vomitting:: None Intake, IV Amount: 0 Hydration: Adequate
[2024-12-04 13:24] VITALS: BP 128/70; PULSE 80; RESP 16; TEMP 36.4; O2SAT 96
== END 2024-12-01 15:12 | disposition home or self-care (01) ==
PROVIDERS: PCP Internal Medicine Adolescent Medicine; Visit Provider Surgery
PROC: 0FT44ZZ Resection of Gallbladder, Percutaneous Endoscopic Approach (ICD-10-PCS; CPT 47562; principal; 2024-12-01 09:30)
DX: C23 Malignant neoplasm of gallbladder (principal)
CPT/HCPCS: 49320; 93005; 96374; J1100; J1596; J1885; J2250; J2270; J2710; J3010; J7120